=== PATIENT | male | born 1950 | race Caucasian/White ===

== ENCOUNTER 2017-11-13 11:45 | Outpatient (REF) | payer MEDICARE, OTHER, SELFPAY ==
[2017-11-13 12:39] LABS: HCT 42.4 % (40.0-50.0); HGB 14.5 g/dL (13.5-17.5); Mean Corp. HGB Concentration 34.2 g/dL (32.0-36.0); Mean Corpuscular Hemoglobin 30.7 pg (27.0-33.0); Mean Corpuscular Volume 89.8 fL (80-95); Mean Platelet Volume 10.5 fL (8.0-11.0); Platelet Count 325 x1000/uL (130-400); RBC 4.72 m/cumm (4.50-6.00); RBC Distribution Width 12.7 % (11.8-14.1); White Blood Cell Count 8.03 k/cumm (4.4-10.8)
[2017-11-13 12:51] LABS: ALT 27 U/L (12-78); AST 21 U/L (15-37); Alkaline Phosphatase 86 U/L (46-116); Anion Gap 7.3 mmol/L (3-11); BUN 23 mg/dL (7-18); Bilirubin, Total 0.5 mg/dL (0.2-1.0); CO2 28.7 mmol/L (21.0-32.0); CREATININE 1.53 mg/dL (0.70-1.30); Calcium 9.2 mg/dL (8.5-10.1); Chloride 100 mmol/L (98-107); Cholesterol 198 mg/dL (50-200); Estimated GFR 45.91 (mL/min/1.73m2); Glucose 106 mg/dL (70-100); HDL Cholesterol 41 mg/dL (40-60); LDL CHOLESTEROL 132 mg/dL (<100); Potassium 4.4 mmol/L (3.5-5.1); Sodium 136 mmol/L (136-145); Total Protein 7.1 g/dL (6.4-8.2); Triglyceride 151 mg/dL (30-150)
[2017-11-14 10:19] LABS: PSA, Screening 7.6 ng/ml (0-4.5)
== END 2017-11-13 12:05 ==
LOC: NCHCN 11:45
PROVIDERS: PCP Internal Medicine; Visit Provider Internal Medicine
DX: I10 Essential (primary) hypertension (principal); R78.5 Finding of other psychotropic drug in blood; Z12.5 Encounter for screening for malignant neoplasm of prostate
CPT/HCPCS: 80053; 80061; 83721; 84153; 85027

== ENCOUNTER 2017-12-19 09:33 | Outpatient (REF) | payer MEDICARE, OTHER, SELFPAY ==
[2017-12-20 09:53] LABS: PSA, Diagnostic 5.7 ng/ml (0-4.5)
== END 2017-12-19 09:53 ==
LOC: NCHCN 09:33
PROVIDERS: PCP Internal Medicine; Visit Provider Internal Medicine
DX: R97.20 Elevated prostate specific antigen [PSA] (principal)
CPT/HCPCS: 84153

== ENCOUNTER 2018-12-12 09:13 | Outpatient (REF) | payer MEDICARE, SELFPAY ==
[2018-12-12 14:17] LABS: ALT 17 U/L (16-63); AST 15 U/L (15-37); Albumin 4.2 g/dL (3.4-5.0); Alkaline Phosphatase 93 U/L (46-116); Anion Gap 8.1 mmol/L (3-11); BUN 26 mg/dL (7-18); Bilirubin, Total 0.4 mg/dL (0.2-1.0); CO2 28.9 mmol/L (21.0-32.0); Calcium 9.4 mg/dL (8.5-10.1); Calculated LDL 122 mg/dL; Chloride 99 mmol/L (98-107); Cholesterol 193 mg/dL (50-200); Glucose 109 mg/dL (70-100); HDL Cholesterol 39 mg/dL (40-60); Potassium 4.9 mmol/L (3.5-5.1); Sodium 136 mmol/L (136-145); Total Protein 7.3 g/dL (6.4-8.2); Triglyceride 161 mg/dL (30-150)
[2018-12-12 14:27] LABS: Hemoglobin A1C 6.4 % (4.5-6.2)
== END 2018-12-12 09:33 ==
LOC: NCHCN 09:13
PROVIDERS: PCP Internal Medicine; Visit Provider Family Medicine
DX: E78.5 Hyperlipidemia, unspecified (principal); I10 Essential (primary) hypertension; E11.9 Type 2 diabetes mellitus without complications
CPT/HCPCS: 80053; 80061; 83036

== ENCOUNTER 2020-02-18 08:17 | Outpatient (REF) | payer MEDICARE, SELFPAY ==
[2020-02-18 21:11] LABS: HCT 41.2 % (40.0-50.0); HGB 13.4 g/dL (13.5-17.5); MCH 30.4 pg (27.0-33.0); MCHC 32.5 % (32.0-36.0); MCV 93.4 fL (80-95); MPV 10.9 fL (8.0-11.0); Platelet Count 309 10^3/uL (130-400); RBC 4.41 10^6/uL (4.36-5.78); RDW 12.3 % (11.8-14.1); RDW-SD 42.4 fL; WBC 7.94 10^3/uL (4.4-10.8)
[2020-02-18 21:25] LABS: ALT 19 U/L (16-63); AST 16 U/L (15-37); Albumin 4.1 g/dL (3.4-5.0); Alkaline Phosphatase 86 U/L (46-116); Anion Gap 7.1 mmol/L (3-11); BUN 25 mg/dL (7-18); Bilirubin, Total 0.4 mg/dL (0.2-1.0); CO2 28.9 mmol/L (21.0-32.0); CREATININE 1.51 mg/dL (0.70-1.30); Calcium 9.5 mg/dL (8.5-10.1); Calculated LDL 103 mg/dL (<100); Chloride 102 mmol/L (98-107); Cholesterol 161 mg/dL (<200); Estimated GFR 46.18 (mL/min/1.73m2); Glucose 115 mg/dL (74-106); HDL Cholesterol 42 mg/dL (40-60); Potassium 5.2 mmol/L (3.5-5.1); Sodium 138 mmol/L (136-145); Total Protein 7.2 g/dL (6.4-8.2); Triglyceride 84 mg/dL (<150)
[2020-02-19 17:35] LABS: PSA, Screening 6.9 ng/mL (0.0-4.5)
== END 2020-02-18 08:37 ==
LOC: NCHCN 08:17
PROVIDERS: PCP Internal Medicine; Visit Provider Family Medicine
DX: I10 Essential (primary) hypertension (principal); E78.5 Hyperlipidemia, unspecified; R97.20 Elevated prostate specific antigen [PSA]; Z00.00 Encounter for general adult medical examination without abnormal findings
CPT/HCPCS: 80053; 80061; 84153; 85027

== ENCOUNTER 2021-02-28 13:17 | Outpatient (REF) | payer MEDICARE, SELFPAY ==
[2021-02-28 15:15] LABS: Hemoglobin A1C 6.1 % (<5.7)
[2021-02-28 15:23] LABS: ALT 20 U/L (16-63); AST 21 U/L (15-37); Albumin 4.1 g/dL (3.4-5.0); Alkaline Phosphatase 86 U/L (46-116); Anion Gap 8.2 mmol/L (3-11); BUN 26 mg/dL (7-18); Bilirubin, Total 0.3 mg/dL (0.2-1.0); CO2 27.8 mmol/L (21.0-32.0); CREATININE 1.6 mg/dL (0.70-1.30); Calcium 9.5 mg/dL (8.5-10.1); Calculated LDL 116 mg/dL (<100); Chloride 104 mmol/L (98-107); Cholesterol 181 mg/dL (<200); Estimated GFR 43.07 (mL/min/1.73m2); Glucose 118 mg/dL (74-106); HDL Cholesterol 50 mg/dL (40-60); Potassium 5.5 mmol/L (3.5-5.1); Sodium 140 mmol/L (136-145); Triglyceride 75 mg/dL (<150)
== END 2021-02-28 13:18 | disposition home or self-care (01) ==
LOC: NCHCN 13:17
PROVIDERS: PCP Internal Medicine; Visit Provider Family Medicine
DX: E11.9 Type 2 diabetes mellitus without complications (principal); I10 Essential (primary) hypertension; E78.5 Hyperlipidemia, unspecified
CPT/HCPCS: 80053; 80061; 83036

== ENCOUNTER 2021-03-08 15:37 | Outpatient (REF) | payer MEDICARE, SELFPAY ==
[2021-03-08 23:02] LABS: PSA, Diagnostic 6.8 ng/mL (0.0-4.5)
== END 2021-03-08 15:38 | disposition home or self-care (01) ==
LOC: NCHCN 15:37
PROVIDERS: PCP Internal Medicine; Visit Provider Family Medicine
DX: R97.20 Elevated prostate specific antigen [PSA] (principal)
CPT/HCPCS: 84153

== ENCOUNTER 2022-11-06 08:30 | Outpatient (REF) | payer MEDICARE, SELFPAY ==
[2022-11-06 16:19] LABS: ALT 17 U/L (16-63); AST 18 U/L (15-37); Albumin 4.2 g/dL (3.4-5.0); Alkaline Phosphatase 110 U/L (46-116); Anion Gap 8.1 mmol/L (3-11); BUN 21 mg/dL (7-18); Bilirubin, Total 0.5 mg/dL (0.2-1.0); CO2 27.9 mmol/L (21.0-32.0); CREATININE 1.7 mg/dL (0.70-1.30); Calculated LDL 113 mg/dL (<100); Chloride 103 mmol/L (98-107); Cholesterol 188 mg/dL (<200); Estimated GFR 42.83 (mL/min/1.73m2); Glucose 127 mg/dL (74-106); HDL Cholesterol 44 mg/dL (40-60); Hemoglobin A1C 6.5 % (<5.7); Potassium 5.6 mmol/L (3.5-5.1); Sodium 139 mmol/L (136-145); Total Protein 7.4 g/dL (6.4-8.2); Triglyceride 155 mg/dL (<150)
[2022-11-06 22:56] LABS: PSA, Screening 12.1 ng/mL (<=6.5)
== END 2022-11-06 08:31 | disposition home or self-care (01) ==
LOC: NCHCN 08:30
PROVIDERS: PCP Internal Medicine; Visit Provider Family Medicine
DX: E11.9 Type 2 diabetes mellitus without complications (principal); I10 Essential (primary) hypertension; E78.5 Hyperlipidemia, unspecified; R97.20 Elevated prostate specific antigen [PSA]; Z12.5 Encounter for screening for malignant neoplasm of prostate
CPT/HCPCS: 80053; 80061; 84153; 83036

== ENCOUNTER → 2022-11-14 08:31 | Outpatient (BNVA) | payer MEDICARE, SELFPAY | PROVIDERS: PCP Internal Medicine; Referring Provider Internal Medicine; Visit Provider Nurse Practitioner Gerontology | DX: N40.1 Benign prostatic hyperplasia with lower urinary tract symptoms (principal); R97.20 Elevated prostate specific antigen [PSA] | CPT/HCPCS: 81003; 99205 ==

== ENCOUNTER → 2023-01-09 12:42 | Outpatient (BNVA) | payer MEDICARE, SELFPAY | PROVIDERS: PCP Internal Medicine; Referring Provider Internal Medicine; Visit Provider Nurse Practitioner Gerontology | DX: R97.20 Elevated prostate specific antigen [PSA] (principal) | CPT/HCPCS: 99214 ==

== ENCOUNTER → 2023-01-16 07:34 | Outpatient (BNVA) | payer MEDICARE, SELFPAY | PROVIDERS: PCP Internal Medicine; Referring Provider Internal Medicine; Visit Provider Nurse Practitioner Gerontology | DX: R97.20 Elevated prostate specific antigen [PSA] (principal) | CPT/HCPCS: 99442 ==

== ENCOUNTER → 2023-01-28 08:49 | Outpatient (BNVA) | payer MEDICARE, SELFPAY | PROVIDERS: PCP Internal Medicine; Referring Provider Internal Medicine; Visit Provider Urology | DX: R97.20 Elevated prostate specific antigen [PSA] (principal) | CPT/HCPCS: 55700; 76872 ==

== ENCOUNTER 2023-01-28 09:06 | Outpatient (REF) | payer MEDICARE, SELFPAY ==
--- NOTE | 2023-01-28 09:20 | PROST_PTH ---
PATIENT: Kip Hernandez LOC: [facility] U#:[id number] AGE/SX: 72/M ROOM: RE01/28/[address]: Jesse Osullivan MD : [id number] BED: DIS: 01/28/2023 SPEC #: [id number] RECD: 01/28/23 12:28 STATUS: VICKEY REQ #: [id number] DEREJE: 01/28/23 09:[address]: Jesse Osullivan DEPT: Surgical Specimen RECD BY: Lillie Gomez ENTERED: 01/28/23 12:29 SP TYPE: PROST OTHR DR: Mac Fofana Tissues: 1 - PROSTATE NEEDLE BIOPSY 2 - PROSTATE NEEDLE BIOPSY 3 - PROSTATE NEEDLE BIOPSY 4 - PROSTATE NEEDLE BIOPSY 5 - PROSTATE NEEDLE BIOPSY 6 - PROSTATE NEEDLE BIOPSY 7 - PROSTATE NEEDLE BIOPSY 8 - PROSTATE NEEDLE BIOPSY 9 - PROSTATE NEEDLE BIOPSY 10 - PROSTATE NEEDLE BIOPSY 11 - PROSTATE NEEDLE BIOPSY 12 - PROSTATE NEEDLE BIOPSY Procedures: GROSS AND MICRO LEVEL 4 Comments: [id number]
== END 2023-01-28 09:07 | disposition home or self-care (01) ==
LOC: LBN 09:06
PROVIDERS: PCP Internal Medicine; Visit Provider Urology
DX: C61 Malignant neoplasm of prostate (principal); R97.20 Elevated prostate specific antigen [PSA]
CPT/HCPCS: 88305

== ENCOUNTER → 2023-02-13 14:16 | Outpatient (BNVA) | payer MEDICARE, SELFPAY | PROVIDERS: PCP Internal Medicine; Referring Provider Internal Medicine; Visit Provider Nurse Practitioner Gerontology | DX: C61 Malignant neoplasm of prostate (principal) | CPT/HCPCS: 99215 ==

== ENCOUNTER → 2023-02-21 01:22 | Outpatient (CLI) | payer MEDICARE, SELFPAY ==
--- NOTE | 2023-02-21 14:15 | DI.NM_ITS ---
Exam(s) NM BONE SCAN WHOLE BODY GRP EXAM: NM BONE SCAN WHOLE BODY GRP CLINICAL HISTORY: staging, new dx prostate cancer,c61. TECHNIQUE: Injected Dose: 25 mCi Tc-99m MDP Delayed Images: 2-3 hours. COMPARISON: CR CHEST 2 VIEWS PA,LAT from 02/17/2010 CR RIGHT SHOULDER COMPLETE from 07/02/2010 FINDINGS: Symmetric axial uptake. Bilateral renal excretion is identified. There is a deformity of the skull on the right consistent with the patient's clinical history. There is increased activity seen in the r ight shoulder which may be degenerative in nature. Correlation with a current x-ray of the right eleno ulder is recommended. There is a focus of increased activity seen on the right in L5 and in the left sacrum. Increased radiotracer uptake is seen in the feet and knees bilaterally which are likely deg enerative. There is increased radiotracer uptake seen in the upper sternum and cervical spine. IMPRESSION: 1. Increased radiotracer uptake seen on the right in the L5 vertebral body and in the left sacrum. T hese are nonspecific but metastatic disease cannot be excluded. 2. Increased uptake seen in the cervical spine and sternum. Metastatic disease should be considered. 3. Increased uptake seen in the right shoulder greater than the left shoulder. While this may be deg enerative changes, correlation with x-rays of the shoulders are recommended. 4. For evaluation of the spine and sacrum, x-rays and/or MRI should be considered for further evaluat ion. DATA REPOSITORY:
== END ==
PROVIDERS: PCP Internal Medicine; Visit Provider Nurse Practitioner Gerontology
DX: C61 Malignant neoplasm of prostate (principal); M17.0 Bilateral primary osteoarthritis of knee
CPT/HCPCS: 78306

== ENCOUNTER → 2023-03-06 12:28 | Outpatient (BNVA) | payer MEDICARE, SELFPAY | PROVIDERS: PCP Internal Medicine; Referring Provider Internal Medicine; Visit Provider Nurse Practitioner Gerontology | DX: C61 Malignant neoplasm of prostate (principal) | CPT/HCPCS: 99214 ==

== ENCOUNTER 2023-08-02 11:23 | Outpatient (RCR) | payer MEDICARE, SELFPAY | END 2023-08-09 23:59 | disposition home or self-care (01) | LOC: CR 11:23 | PROVIDERS: PCP Internal Medicine; Visit Provider Internal Medicine Cardiovascular Disease | DX: I71.21 Aneurysm of the ascending aorta, without rupture (principal); Z51.89 Encounter for other specified aftercare | CPT/HCPCS: S9472 ==

== ENCOUNTER 2023-10-21 03:34 | Outpatient (CLI) | payer MEDICARE, SELFPAY ==
[2023-10-21 10:09] LABS: ALT 26 U/L (16-63); AST 21 U/L (15-37); Albumin 4.1 g/dL (3.4-5.0); Alkaline Phosphatase 108 U/L (46-116); Anion Gap 7.2 mmol/L (3-11); BUN 33 mg/dL (7-18); Bilirubin, Total 0.51 mg/dL (0.2-1.0); CO2 29.8 mmol/L (21.0-32.0); CREATININE 1.9 mg/dL (0.70-1.30); Calcium 9.7 mg/dL (8.5-10.1); Calculated LDL 139 mg/dL (<100); Chloride 101 mmol/L (98-107); Cholesterol 218 mg/dL (<200); Estimated GFR 37.25 (mL/min/1.73m2); Glucose 126 mg/dL (74-106); HDL Cholesterol 54 mg/dL (40-60); Potassium 4.9 mmol/L (3.5-5.1); Sodium 138 mmol/L (136-145); Total Protein 7.5 g/dL (6.4-8.2); Triglyceride 125 mg/dL (<150)
[2023-10-21 18:36] LABS: PSA, Screening 0.3 ng/mL (<=6.5)
== END 2023-10-21 03:35 | disposition home or self-care (01) ==
LOC: LBO 03:34
PROVIDERS: PCP Internal Medicine; Visit Provider Family Medicine
DX: Z00.00 Encounter for general adult medical examination without abnormal findings (principal); Z12.5 Encounter for screening for malignant neoplasm of prostate
CPT/HCPCS: 36415; 80053; 80061; 84153

== ENCOUNTER 2023-11-27 02:19 | Outpatient (CLI) | payer MEDICARE, SELFPAY ==
--- NOTE | 2023-11-27 08:48 | DI.CT_ITS ---
Exam(s) CT PELVIC WO EXAM: CT PELVIC WO CLINICAL HISTORY: PROSTATE CANCER C61, CT SCAN AFTER PROSTATE SEEDS. TECHNIQUE: Imaging Protocol: Axial computed tomography images with coronal and sagittal reformatted images were created and reviewed CONTRAST MATERIAL: Intravenous: none Oral: None COMPARISON: NM NM BONE SCAN WHOLE BODY GRP from 02/21/2023 FINDING: PELVIS: OSSEOUS: No pelvic nor hip fractures evident.No lytic osseous lesions identified.Sclerotic intraosseo us density at L5-S1 level and left osteophytes at this level) and right side of L4-5 (related to asym metric narrowing of the right-side of the disc space and subjacent benign appearing Modic type bony c hanges) are noted and correspond to the areas of increased uptake at these levels described on the 2022 nuclear bone scan. ANTERIOR ABDOMINAL WALL/GI:There is some subcutaneous fat streaking on the anterior side of the abdom en approximately 5 cm lateral to the umbilicus and on the right side lower than the umbilical level, possibly related to injection sites. There are no drainable fluid collections at these levels and no subcutaneous air-gas. No evidence of abnormal focal findings within the anterior abdominal wall musculature. No significan t hernias.No obvious bowel obstruction. No evidence of appendicitis.Sigmoid diverticuli noted withou t evidence of obvious acute diverticulitis.No free fluid in the pelvis. LYMPH NODES: There is no intrapelvic nor inguinal adenopathy. URINARY BLADDER: Mild uniform thickening of the urinary bladder wall. No evidence of obvious mass no r radiopaque calculi within the urinary bladder lumen. REPRODUCTIVE: Mildly enlarged prostate gland which contains numerous seeds.. The partially included lower aspect of the abdominal aorta appears slightly prominent with diameter 2 .7 cm. Most of the abdominal aorta is not included in the field of view here. There is mild dilatat ion of the right common iliac artery with maximum diameter 1.5 cm. Maximum diameter of the left comm on iliac artery is 1.2 cm. IMPRESSION: 1. Multiple seeds evident within the prostate gland. 2. No obvious intrapelvic adenopathy. 3. Benign-appearing bone findings as described above in the lower lumbar spine L4-5 and L5-S1 levels which explain the foci of increased uptake on the nuclear bone scan of 02/21/2023. Other findings as above. RADIATION DOSE DELIVERED: 287.89mGy.cm Total DLP DATA REPOSITORY: All CT scans at this facility are submitted to the National Radiology Data Registry (NRDR) Dose Index Registry (DIR) with the [employer] ([employer]). RADIATION OPTIMIZATION: All CT scans at this facility use at least one of these dose optimization te chniques: automated exposure control; mA and/or kV adjustment per patient size (includes targeted exa ms where dose is matched to clinical indication); or iterative reconstruction.
== END 2023-11-27 02:39 ==
PROVIDERS: PCP Internal Medicine; Visit Provider Radiology Radiation Oncology
DX: C61 Malignant neoplasm of prostate (principal)
CPT/HCPCS: 72192

== ENCOUNTER 2024-01-28 03:17 | Outpatient (CLI) | payer MEDICARE, SELFPAY ==
[2024-01-30 11:43] LABS: PSA, Ultrasensitive 0.16 ng/mL (<= 6.5)
[2024-02-01 11:44] LABS: Testosterone, Total 390 ng/dL (240-950)
== END 2024-01-28 03:18 | disposition home or self-care (01) ==
LOC: LBO 03:18
PROVIDERS: PCP Internal Medicine; Visit Provider Registered Nurse Oncology
DX: C61 Malignant neoplasm of prostate (principal)
CPT/HCPCS: 36415; 84153; 84403

== ENCOUNTER 2024-06-02 02:47 | Outpatient (CLI) | payer MEDICARE, SELFPAY ==
[2024-06-04 09:31] LABS: PSA, Ultrasensitive 0.63 ng/mL (<= 6.5)
[2024-06-05 11:38] LABS: Testosterone, Total 256 ng/dL (240-950)
== END 2024-06-02 02:48 | disposition home or self-care (01) ==
LOC: LBO 02:47
PROVIDERS: PCP Internal Medicine; Visit Provider Registered Nurse Oncology
DX: C61 Malignant neoplasm of prostate (principal)
CPT/HCPCS: 36415; 84153; 84403

== ENCOUNTER 2024-06-17 02:05 | Outpatient (CLI) | payer MEDICARE, SELFPAY ==
[2024-06-17 12:01] LABS: CREATININE 1.7 mg/dL (0.70-1.30)
== END 2024-06-17 02:06 | disposition home or self-care (01) ==
PROVIDERS: PCP Internal Medicine; Visit Provider Thoracic Surgery (Cardiothoracic Vascular Surgery)
DX: Z95.828 Presence of other vascular implants and grafts (principal)
CPT/HCPCS: 36415; 82565

== ENCOUNTER 2024-06-18 01:15 | Outpatient (CLI) | payer MEDICARE, SELFPAY ==
[2024-06-18] MEDS: Normal Saline - Diluent 50 ML VIAL IJ (15:12)
[2024-06-18] MEDS: Omnipaque 350 MG/ML 100 ML BTL IJ (15:15)
--- NOTE | 2024-06-18 15:19 | DI.CT_ITS ---
Exam(s) CT THORAX CTA EXAM: CT THORAX CTA CLINICAL HISTORY: H/O ASCENDING AORTIC REPLACEMENT,EVAL. TECHNIQUE: Imaging Protocol: Axial CT angiography was performed with multi-slice acquisition and mu lti-planar and/or 3D reconstructions. Lung Computer Aided Detection (CAD) was utilized. CONTRAST MATERIAL: Intravenous: Omnipaque 350 contrast volume:100 mL COMPARISON: CT CTA CHEST (NON-CORONARY) W/WO LEB from 05/15/2023 FINDINGS: Tracheobronchial tree: Patent where visualized. No bronchiectasis. Pulmonary parenchyma: There are stable postsurgical changes seen in the left suprahilar region. No f ocal consolidating infiltrates are present. No suspicious pulmonary nodules are present. Pulmonary Arteries: No evidence of filling defect to suggest pulmonary emboli. Mediastinum and Serena: No dominant adenopathy or fluid collection. The esophagus is unremarkable. Visualized thyroid gland: There is a 6 mm hypodensity in the right lobe of the thyroid gland. No fol low-up is recommended. Pleura: No effusion or pneumothorax. Heart: Cardiomegaly. Coronary artery calcifications are present. No pericardial effusion. Aorta: Ascending thoracic aorta now measures 4 x 3.5 cm. There are now postsurgical changes seen of the ascending aorta with repair of the ascending aortic aneurysm previously seen. There is a fold se en in the ascending thoracic aorta graft. The descending thoracic aorta measures 3.5 x 3.4 cm at the level of the left atrium. The thoracic aortic arch measures 3.5 cm. No evidence of dissection. Upper abdomen: Unremarkable. Soft tissues: Unremarkable. Bones: Within normal limits for the patient's age.Sternal wires are in place. IMPRESSION: 1. Postsurgical changes of an ascending thoracic aortic aneurysm repair. 2. No acute pulmonary process. RADIATION DOSE DELIVERED: 88.26mGy.cm Total DLP 88.26mGy.cm Total DLP DATA REPOSITORY: All CT scans at this facility are submitted to the National Radiology Data Registry (NRDR) Dose Index Registry (DIR) with the [employer] (A[employer]). RADIATION OPTIMIZATION: All CT scans at this facility use at least one of these dose optimization te chniques: automated exposure control; mA and/or kV adjustment per patient size (includes targeted exa ms where dose is matched to clinical indication); or iterative reconstruction.
== END 2024-06-18 01:35 ==
LOC: DI 01:15
PROVIDERS: PCP Internal Medicine; Visit Provider Thoracic Surgery (Cardiothoracic Vascular Surgery)
DX: Z95.828 Presence of other vascular implants and grafts (principal); I71.22 Aneurysm of the aortic arch, without rupture
CPT/HCPCS: 71275; J3490

== ENCOUNTER 2024-09-18 01:07 | Outpatient (CLI) | payer MEDICARE, SELFPAY ==
[2024-09-18 18:39] LABS: PSA, Diagnostic 0.5 ng/mL (<=6.5)
== END 2024-09-18 01:08 | disposition home or self-care (01) ==
PROVIDERS: PCP Internal Medicine; Visit Provider Registered Nurse Oncology
DX: C61 Malignant neoplasm of prostate (principal)
CPT/HCPCS: 36415; 84403; 84153

== ENCOUNTER 2024-11-10 16:01 | Outpatient (REF) | payer MEDICARE, SELFPAY ==
[2024-11-10 16:33] LABS: ALT 12 U/L (16-63); AST 12 U/L (15-37); Albumin 3.6 g/dL (3.4-5.0); Alkaline Phosphatase 128 U/L (46-116); Anion Gap 8.8 mmol/L (3-11); BUN 24 mg/dL (7-18); Bilirubin, Total 0.4 mg/dL (0.2-1.0); CO2 27.2 mmol/L (21.0-32.0); Calcium 9.3 mg/dL (8.5-10.1); Calculated LDL 114 mg/dL (<100); Chloride 100 mmol/L (98-107); Cholesterol 177 mg/dL (<200); Estimated GFR 45.50 (mL/min/1.73m2); Glucose 126 mg/dL (74-106); HDL Cholesterol 46 mg/dL (>or=40); Potassium 5.1 mmol/L (3.5-5.1); Sodium 136 mmol/L (136-145); Total Protein 7.0 g/dL (6.4-8.2); Triglyceride 89 mg/dL (<150); Vitamin D 25 Total 36 ng/mL (30-100)
[2024-11-10 17:15] LABS: Hemoglobin A1C 6.8 % (<5.7)
== END 2024-11-10 16:02 | disposition home or self-care (01) ==
LOC: NCHCN 16:01
PROVIDERS: PCP Internal Medicine; Visit Provider Family Medicine
DX: E11.9 Type 2 diabetes mellitus without complications (principal); I10 Essential (primary) hypertension; E78.5 Hyperlipidemia, unspecified
CPT/HCPCS: 80053; 80061; 82306; 83036

== ENCOUNTER 2024-11-30 16:00 | Outpatient (CLI) | payer MEDICARE, SELFPAY ==
--- NOTE | 2024-11-30 15:00 | DI.RAD_ITS ---
Exam(s) XR HAND RT COMPLETE EXAM: XR HAND RT COMPLETE CLINICAL HISTORY: hand pain. TECHNIQUE: 2D digital imaging was performed of the right hand. Three images were obtained. AP, lateral and oblique views were obtained. COMPARISON: CR XR HAND LT COMPLETE from 11/30/2024 FINDINGS: BONES: No acute fracture is present. No bony destructive lesion is seen. JOINTS: No dislocation present. There are degenerative changes seen in the hand characterized by joint space narrowing and osteophytes. The findings are most marked in the interphalangeal joints of the fingers. There is mild joint space narrowing of the 3rd metacarpophalangeal joint. SOFT TISSUE: Normal. IMPRESSION: Mild degenerative changes of the right hand. DATA REPOSITORY: RADIATION DOSE DELIVERED:
--- NOTE | 2024-11-30 15:00 | DI.RAD_ITS ---
Exam(s) XR HAND LT COMPLETE EXAM: XR HAND LT COMPLETE CLINICAL HISTORY: hand pain. TECHNIQUE: 2D digital imaging was performed of the left hand. Three views were obtained. AP, lateral and oblique views were obtained. COMPARISON: No exams were available for comparison FINDINGS: BONES: No acute fracture is present. No bony destructive lesion is seen. JOINTS: No dislocation present. There are mild degenerative changes seen in the hand characterized by joint space narrowing and osteophytes. The findings are most marked in the interphalangeal joints of the 2nd finger. The metacarpophalangeal joints are well maintained as are the joints in the carpal bones. SOFT TISSUE: Normal. IMPRESSION: Mild osteoarthritis of the left hand. DATA REPOSITORY: RADIATION DOSE DELIVERED:
== END 2024-11-30 16:01 | disposition home or self-care (01) ==
LOC: DIORS 12-01 13:46
PROVIDERS: PCP Internal Medicine; Referring Provider Internal Medicine; Visit Provider Student in an Organized Health Care Education/Training Program
DX: M79.641 Pain in right hand (principal); M79.642 Pain in left hand; M19.041 Primary osteoarthritis, right hand; M19.042 Primary osteoarthritis, left hand
CPT/HCPCS: 99213; 73130